=== PATIENT | male | born 1995 | race Caucasian/White ===

== ENCOUNTER 2017-12-29 10:08 | Emergency (ER) | payer OTHER ==
[~2017-12-29] VITALS: Ht 185.4 cm; Wt 81.0 kg
[2017-12-29 10:52] LABS: BASOPHILS % (AUTO) 0.3 % (0-1); EOSINOPHILS # (AUTO) 0.1 X10'3 (0-0.9); EOSINOPHILS % (AUTO) 1.5 % (0-6); HEMATOCRIT 45.5 % (42.0-52.0); HEMOGLOBIN 15.9 g/dl (14.0-17.9); LYMPHOCYTES # (AUTO) 1.3 X10'3 (1.1-4.8); LYMPHOCYTES % (AUTO) 17.3 % (21-51); MEAN CORPUSCULAR HEMOGLOBIN 29.9 PG (27.0-31.0); MEAN CORPUSCULAR VOLUME 85.5 FL (78-98); MONOCYTES # (AUTO) 0.4 X10'3 (0-0.9); MONOCYTES % (AUTO) 5.9 % (2-12); NEUTROPHILS # (AUTO) 5.6 X10'3 (1.8-7.7); PLATELET COUNT 207 X10'3 (140-440); RED BLOOD COUNT 5.32 X10'6 (4.70-6.10); RED CELL DISTRIBUTION WIDTH 13.3 % (11.5-14.5); WHITE BLOOD COUNT 7.4 X10'3 (4.5-11.0)
[2017-12-29 10:57] LABS: CLARITY,URINE CLEAR (Clear); COLOR,URINE STRAW (Yellow); GLUCOSE, URINE NEGATIVE (Neg); KETONES,URINE NEGATIVE (Neg); LEUKOCYTE ESTERASE ,URINE NEGATIVE (Neg); NITRITES, URINE NEGATIVE (Neg); OCCULT BLOOD,URINE NEGATIVE (Neg); PH,URINE 6.5 (4.8-8.0); PROTEIN,URINE NEGATIVE (Neg); UA COLLECTION TYPE VOIDED; UROBILINOGEN,URINE 0.2 E.U/dL (0.2-1.0)
[2017-12-29 11:02] LABS: PROTHROMBIN TIME 10.7 SECONDS (9.0-12.0)
[2017-12-29 11:10] LABS: ALANINE AMINOTRANSFERASE 22 U/L (12-78); ALBUMIN 4.4 G/DL (3.4-5.0); ALBUMIN/GLOBULIN RATIO 1.3 (1.1-1.5); ALKALINE PHOSPHATASE 58 IU/L (46-116); ANION GAP 7 (8-16); ASPARTATE AMINO TRANSFERASE 17 U/L (10-37); BILIRUBIN,TOTAL 0.8 MG/DL (0.1-1.0); BLOOD UREA NITROGEN 5 MG/DL (7-18); BUN/CREATININE RATIO 5.3 (5.4-32.0); CALCIUM 9.4 MG/DL (8.5-10.1); CHLORIDE 103 MMOL/L (99-107); CREATININE 0.95 MG/DL (0.60-1.10); GLUCOSE 132 MG/DL (70-104); POTASSIUM 3.8 MMOL/L (3.5-5.1); SODIUM 139 MMOL/L (135-145); TOTAL CARBON DIOXIDE 28.8 MMOL/L (24-32); TOTAL PROTEIN 7.9 G/DL (6.4-8.2); eGFR > 90 ML/MIN
[2017-12-29] MEDS ORDERED: LIDOcaine Viscous 15ml cup PO ONE (11:35)
[2017-12-29] MEDS ORDERED: famotidine 20mg tablet PO ONE (11:35)
[2017-12-29] MEDS ORDERED: pantoprazole 40mg Tablet.DR PO ONE (11:35)
[2017-12-29] MEDS ORDERED: ondansetron 4mg rapidly disintigrating tab PO ONE (11:35)
[2017-12-29] MEDS ORDERED: mag hydrox/Alum hydrox/simeth 30ml oral suspension PO ONE (11:35)
[2017-12-29] MEDS ORDERED: PANT20TA2 PO (12:40)
[2017-12-29] MEDS ORDERED: BISA-155 PO (12:40)
[2017-12-29] MEDS ORDERED: ONDA8TAB9 PO (12:40)
[2017-12-29 13:14] VITALS: BP 138/91
== END 2017-12-29 13:16 | disposition home or self-care (01) ==
LOC: ER 10:09
DX: R10.13 Epigastric pain (principal); K21.9 Gastro-esophageal reflux disease without esophagitis; Z79.899 Other long term (current) drug therapy
CPT/HCPCS: 36415; 76705; 80053; 81003; 85025; 85610; 99285

== ENCOUNTER 2019-06-24 06:44 | Emergency (ER) | payer OTHER ==
[~2019-06-24] VITALS: Ht 182.9 cm; Wt 90.0 kg
[~2019-06-24 06:44] MED LIST: BISA-155 PO; ONDA8TAB9 PO; PANT20TA2 PO
[2019-06-24 06:52] VITALS: BP 141/70
[2019-06-24] MEDS ORDERED: PRED20TA PO (07:21)
== END 2019-06-24 07:37 | disposition home or self-care (01) ==
LOC: ER 06:45
DX: L23.7 Allergic contact dermatitis due to plants, except food (principal); J06.9 Acute upper respiratory infection, unspecified; K21.9 Gastro-esophageal reflux disease without esophagitis; Z79.899 Other long term (current) drug therapy
CPT/HCPCS: 99283

== ENCOUNTER 2020-01-06 02:52 | Emergency (ER) | payer BC, OTHER ==
[~2020-01-06] VITALS: Ht 182.9 cm; Wt 88.6 kg
[2020-01-06 02:57] VITALS: BP 138/80
[2020-01-06] MEDS ORDERED: PENI500T2 PO (03:06)
== END 2020-01-06 03:12 | disposition home or self-care (01) ==
LOC: ER 02:53
DX: K04.7 Periapical abscess without sinus (principal); R11.0 Nausea; K21.9 Gastro-esophageal reflux disease without esophagitis; F12.90 Cannabis use, unspecified, uncomplicated; Z79.899 Other long term (current) drug therapy
CPT/HCPCS: 99283